=== PATIENT | male | born 1990 | race Caucasian/White ===

== ENCOUNTER 2019-12-17 16:05 | Emergency (ER) | payer OTHER ==
[2019-12-17 16:27] VITALS: BP 133/95; PULSE 82; TEMP 97.7
--- NOTE | 2019-12-17 16:52 | PDOC ---
Rapid Medical Evaluation Time Seen by Provider: 12/17/19 16:48 Medical Evaluation: Vital Signs Temp Pulse Resp BP Pulse Ox 97.7 F 82 18 133/95 100 12/17/19 16:10 12/17/19 16:10 12/17/19 16:10 12/17/19 16:10 12/17/19 16:10 12/17/19 16:48 HPI: COVID-19 CDC guideline data points: The patient is a 29 year old male h/o pneumonia presents with generalized body pain, chills and pain in lower ribs, cough nonproducitive. diarrhea x 3 days. Works at a [employer] and coworker exposed to COVID-19. ROS: NEGATIVE: (+) difficulty breathing, shortness of breath, (+) chest pain, lightheadedness, dizziness, nausea, vomiting and diarrhea. Other 12 point ROS reviewed and negative. Exam: General: NAD, Well-Appearing, Awake, Alert Oriented x3. Vital signs stable. ENT: No rhinorrhea or nasal congestion. Neck: FROM, no midline tenderness. Lungs: Clear to auscultation bilaterally without wheezes, rhonchi or rales. Normal excursion. Patient is able to speak in full sentences. Heart: HR: Regular rhythm, S1-S2 present, no murmurs rubs or gallops. Abdomen: Non-distended. MSK/Extremities: No decrease ROM, No obvious deformities. No obvious cyanosis noted. Neuro: Normal Gait, Cranial Nerves II through XII Grossly Intact. Skin: No obvious rashes, bruising. Color Normal Appearing. Assessment/Plan: [Cough/COVID exporsure] Patient has a history of this/these comorbidities: [none], denies recent travel and known COVID exposure. Patient does not meet testing criteria at this time. ASSESSMENT: Denies recent travel and known Covid exposure. Treatment: cxr 12/17/19 16:55
--- NOTE | 2019-12-17 17:17 | PDOC ---
Rapid Medical Evaluation Time Seen by Provider: 12/17/19 16:48 Medical Evaluation: Vital Signs Temp Pulse Resp BP Pulse Ox 97.7 F 82 18 133/95 100 12/17/19 16:10 12/17/19 16:10 12/17/19 16:10 12/17/19 16:10 12/17/19 16:10 12/17/19 17:16 pt cxr -. Continue covid precautions Discharge Disposition - Diagnosis Cough - Discharge Dispostion Disposition: HOME Condition at time of disposition: Good - Referrals Referrals: Dennis Whitehead PA [Primary Care Provider] - - Patient Instructions Printed Discharge Instructions: [facility] COVID-19 Isolation Protocol, [facility]-Coronavirus Instructions Additional Instructions: You were seen for your cough and possible Coronavirus (COVID-19) Please call the [facility] testing center to make an appointment at or you can call [facility] at from 8:30 AM to 6 PM; or you can visit the [facility] website: [email or web address] for more information about testing at the [facility]. Take Tylenol 650 mg every 6 hours as needed for fever or pain. You may take Robitussin or other [id number] cough syrup. Follow the dosing instructions on the bottle. Warm tea, honey, and salt water gargles may help your symptoms. Please take precautions and self quarantine for 2 weeks and follow-up with your primary care doctor and the Department of Health. Return to the nearest emergency department for shortness of breath, difficulty breathing, chest pain, or if you have any changes in your symptoms. - Post Discharge Activity
== END 2019-12-17 17:19 | disposition home or self-care (01) ==
LOC: JER 16:05
DX: R05 Cough (principal)
CPT/HCPCS: 71045-TC-FY; 99283-25

== ENCOUNTER 2020-08-21 20:27 | Emergency (ER) | payer OTHER ==
[2020-08-21 20:54] VITALS: BP 125/63; PULSE 81; TEMP 98.2; BMI 25.8
[2020-08-21 22:01] LABS: THROAT:GRP A STREP ANTIGEN Negative (Negative)
== END 2020-08-21 22:16 | disposition home or self-care (01) ==
LOC: JERFT 20:27 → JER 20:27 → JERFT 22:16
DX: R09.81 Nasal congestion (principal)
CPT/HCPCS: 87070; 87880; 99282-25; C9803; U0003

== ENCOUNTER 2021-03-14 16:20 | Emergency (ER) | payer OTHER ==
[2021-03-14 16:36] VITALS: BP 119/73; PULSE 73; TEMP 98.3; BMI 24.8
== END 2021-03-14 17:40 | disposition home or self-care (01) ==
LOC: JERFT 16:20
PROC: 2W3JX1Z Immobilization of Right Finger using Splint (ICD-10-PCS; principal; 2021-03-14)
DX: S62.666A Nondisplaced fracture of distal phalanx of right little finger, initial encounter for closed fracture (principal)
CPT/HCPCS: 73140-TC-RT-FY; 99283-25